=== PATIENT | female | born 1975 | race Two or more races ===

== ENCOUNTER 2024-02-12 18:34 | Emergency (ER) | payer OTHER ==
[~2024-02-12] VITALS: Ht 160 cm; Wt 77.1 kg
[~2024-02-12 18:34] MED LIST: ACIDO FOLICO; SULFATO FERROSO
[2024-02-12] MEDS ORDERED: HYDROCHLOROTHIA50 MG PO (18:57)
[2024-02-12] MEDS ORDERED: CLONIDINE1 EACH TD (18:57)
[2024-02-12] MEDS ORDERED: ATORVASTATIN CA10 MG PO (18:57)
[2024-02-12] MEDS ORDERED: TOPROL XL50 M1 PO (18:57)
[2024-02-12] MEDS ORDERED: DEXAMETHASONE SODIUM PHOSPHATE 4 MG/ML VIAL IM STA (20:44)
[2024-02-12] MEDS ORDERED: KETOROLAC TROMETHAMINE 30 MG VIAL IM STA (20:44)
[2024-02-12] MEDS ORDERED: DEXAMETHASONE SODIUM PHOSPHATE 4 MG/ML VIAL ONE (20:51)
[2024-02-12] MEDS ORDERED: KETOROLAC TROMETHAMINE 30 MG VIAL ONE (20:51)
[2024-02-12] MEDS ORDERED: MEDROLPACK PO (21:51)
== END 2024-02-12 22:00 | disposition home or self-care (01) ==
LOC: ER 18:34
DX: M79.641 Pain in right hand (principal); Z88.0 Allergy status to penicillin; Z88.8 Allergy status to other drugs, medicaments and biological substances; I10 Essential (primary) hypertension; M79.644 Pain in right finger(s)